=== PATIENT | male | born 1975 | race Caucasian/White ===

== ENCOUNTER 2017-08-28 22:16 | Emergency (ER) | payer SELFPAY ==
[~2017-08-28] VITALS: Ht 193 cm; Wt 99.8 kg
[2017-08-28] MEDS ORDERED: VITAMINS (22:55)
[2017-08-28 23:10] VITALS: BP 133/87
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
== END 2017-08-28 23:30 | disposition left against medical advice (07) ==
LOC: EMR 23:19
DX: M54.5 Low back pain (principal); Z88.1 Allergy status to other antibiotic agents
CPT/HCPCS: 99281